=== PATIENT | male | born 1990 | race Caucasian/White ===

== ENCOUNTER 2017-02-02 11:03 | Emergency (ER) | payer MEDICAID ==
[~2017-02-02] VITALS: Ht 170.2 cm; Wt 94.3 kg
[2017-02-02 11:07] VITALS: BP 145/99
--- NOTE | 2017-02-02 11:15 | NUR ---
patient still in the [facility]. no avail. bed at this time
--- NOTE | 2017-02-02 11:45 | NUR ---
Patient transferred to bed 8 for further care. RN evaluating patient at bedside.
--- NOTE | 2017-02-02 11:45 | NUR ---
26/M BIBA C/O body tremor after dental work x1 hr. ago. PT STS UPPER TOOTH INFECTION. DENIES N/V/D; SKIN IS PINK/WARM/DRY; AAOX4 WITH EVEN AND STEADY GAIT; LUNGS CLEAR BL; HR EVEN AND REGULAR; PT DENIES ANY FEVER, CP, SOB, OR COUGH AT THIS TIME; PATIENT STATES PAIN OF 2/10 AT THIS TIME; PATIENT POSITIONED FOR COMFORT; HOB ELEVATED; BEDRAILS UP X2; BED DOWN. ER MD MADE AWARE OF PT STATUS.
--- NOTE | 2017-02-02 11:48 | NUR ---
Dr. Walton evaluating patient at beside.
--- NOTE | 2017-02-02 11:50 | NUR ---
Prasanna calabrese in [facility] - 02/02/17 at 1152 by [email or web address] Patient being evaluated by DR JUNIOR at bedside.
--- NOTE | 2017-02-02 12:24 | NUR ---
LAB AT BEDSIDE.
--- NOTE | 2017-02-02 12:26 | NUR ---
Note undone in [facility] - 02/02/17 at 1231 by [email or web address] PAIN 03/03 PT TOOK IBUPROFEN [address] JUNIOR. Addendum: 02/02/17 at 1227 by [email or web address] Amendment undone in [facility] - 02/02/17 at 1231 by [email or web address] FAMILY AT BEDSIDE.
--- NOTE | 2017-02-02 12:26 | NUR ---
PAIN 10/10 PT TOOK IBUPROFEN [address] JUNIOR.
--- NOTE | 2017-02-02 12:27 | NUR ---
EKG AT BEDSIDE.
[2017-02-02 12:34] LABS: BASOPHILS # (AUTO) 0.1 K/uL (0.00-0.22); BASOPHILS % (AUTO) 1.4 % (0.0-2.0); EOSINOPHILS # (AUTO) 0.1 K/uL (0-0.4); HEMATOCRIT 41.2 % (36-52); HEMOGLOBIN 13.6 g/dL (12.0-18.0); LYMPHOCYTES # (AUTO) 0.5 K/uL (2.0-11.5); LYMPHOCYTES % (AUTO) 5.6 % (20.5-51.1); MEAN CORPUSCULAR HEMOGLOBIN 30 pg (27-31); MEAN CORPUSCULAR HGB CONC 33 g/dL (33-37); MEAN CORPUSCULAR VOLUME 91 fL (80-94); MONOCYTES # (AUTO) 0.1 K/uL (0.8-1.0); NEUTROPHILS # (AUTO) 8.6 K/uL (1.8-7.7); PLATELET COUNT (AUTO) 416 K/uL (140-450); RED BLOOD CELL COUNT(AUTO) 4.53 MIL/uL (4.20-6.10); RED CELL DISTRIBUTION WIDTH 11.3 % (11.6-13.7); WHITE BLOOD COUNT (AUTO) 9.4 K/uL (4.8-10.8)
[2017-02-02] MEDS ORDERED: KETOROLAC 30 MG/ML VIAL IVP ONE (12:35)
[2017-02-02 12:42] LABS: BILIRUBIN,URINE 2+ (NEGATIVE); BLOOD, URINE 2+ (NEGATIVE); COLOR,URINE YELLOW (YELLOW); LEUKOCYTE ESTERASE ,URINE NEGATIVE (NEGATIVE); NITRITE, URINE NEGATIVE (NEGATIVE); UGLUCOSE NEGATIVE (NEGATIVE)
[2017-02-02 12:45] LABS: ANION GAP 21.3 (8-16); CARBON DIOXIDE 19.2 mmol/L (21-32); CREATININE 1.2 mg/dL (0.7-1.3); POTASSIUM 3.5 mmol/L (3.5-5.1)
[2017-02-02] MEDS ORDERED: NACL 0.9% 1,000 ML IV ONE (12:45)
[2017-02-02 12:46] LABS: APPEARANCE,URINE SLIGHTLY HAZY (CLEAR)
[2017-02-02 12:48] LABS: RBC,URINE 3-10 (FEW) /HPF (0-5); WBC,URINE 0-5 (RARE) /HPF (0-5)
[2017-02-02 12:59] LABS: ALBUMIN 3.8 g/dL (3.4-5.0); THYROID STIMULATING HORMONE 2.27 uIU/mL (0.34-3.74); TOTAL BILIRUBIN 1.4 mg/dL (0.0-1.0)
[2017-02-02 13:01] LABS: BARBITURATE, URINE NEG. ng/ml (NEG <=200); BENZODIAZEPINE, URINE POS. ng/mL (NEG <=200); CANNABINOID, URINE NEG. ng/mL (NEG <=50); COCAINE, URINE NEG. ng/mL (NEG <=300); OPIATE, URINE POS. ng/mL (NEG <=2000); PHENCYCLIDINE SCREEN,URINE NEG. ng/mL (NEG <=25)
--- NOTE | 2017-02-02 13:29 | NUR ---
Dr. Walton re-evaluating patient at bedside.
[2017-02-02 14:30] VITALS: BP 107/63
--- NOTE | 2017-02-02 14:30 | NUR ---
Patient discharged with v/s stable. Written and verbal after care instructions given and explained. Patient verbalized understanding. Ambulatory with steady gait. All questions addressed prior to discharge. Advised to follow up with PMD. PT LEFT W/O DC DOCUMENT .
--- NOTE | 2017-02-02 14:40 | NUR ---
PT TAKEN TO CT.
--- NOTE | 2017-02-02 16:29 | NUR ---
Prasanna calabrese in [facility] - 02/02/17 at 1629 by [email or web address] PT LEFT W/O DC DOCUMENT .
== END 2017-02-02 14:30 | disposition home or self-care (01) ==
LOC: MED 11:03
DX: E86.0 Dehydration (principal); K01.1 Impacted teeth
CPT/HCPCS: 36415; 70450; 80053; 80305; 81001; 84443; 85025; 93005; 96361; 96374; 99285; J1885; J7030